=== PATIENT | male | born 1980 | race Caucasian/White ===

== ENCOUNTER 2021-10-27 14:24 | Emergency (ER) | payer MEDICAID, SELFPAY ==
[2021-10-27 14:26] VITALS: BP 146/86; PULSE 94; RESP 18; TEMP 36.1; O2SAT 98; BMI 26.6
[2021-10-27 14:56] LABS: Absolute Lymphocyte Count 2.18 X10^3/uL (0.83-4.51); Absolute Neutrophil Count 5.7 X10^3/uL (2.0-7.7); Basophil# 0.04 X10^3/uL; Basophil% 0.5 % (0-1); Eosinophil# 0.07 X10^3/uL; Eosinophils% 0.8 % (0-5); Hemoglobin 15.7 g/dL (13.0-16.5); Lymphocyte # 2.18 X10^3/ul (0.83-4.51); Lymphocyte % 25.9 % (19-41); Mean Corp Hgb Conc 36.5 g/dL (32-36); Mean Corpuscular Volume 87.8 fL (80-94); Mean Platelet Vol. 8.9 fl (6.2-12.0); Monocyte# 0.37 X10^3/uL; Monocyte% 4.4 % (0-10); NRBC Flagged by Analyzer 0 % (0-5); Neutrophil # 5.74 X10^3/uL (2.7-7.7); Neutrophil % 68.2 % (47-70); Platelet Count 283 K/mm3 (150-450); RBC Distribution Width CV 12.2 % (11.6-14.6); White Blood Count 8.4 K/mm3 (4.4-11.0)
[2021-10-27 15:08] LABS: Anion Gap 4 (5-15); BUN 13 mg/dL (7-18); Calcium,Total 9.3 mg/dL (8.5-10.1); Chloride 109 mmol/L (98-107); Creatinine, Serum 1.08 mg/dL (0.70-1.30); EST Glomerular Filtration Rate 80 mL/min (>60); Est Glom Filt Rate - Afr Amer 97 mL/min (>60); Estimated Creatinine Clearance 87.08 ml/min; Glucose 131 mg/dL (74-106); Potassium 3.8 mmol/L (3.5-5.1); Sodium Level 138 mmol/L (136-145)
--- NOTE | 2021-10-27 15:15 | EDS_ITS ---
HPI HPI - Psych History of Present Illness Chief Complaint: Mental Health Informant: patient Onset/Context/Timing Onset: Weeks Context: Gradual Onset Timing: Continuous Current Severity: Moderate Maximum Severity: Moderate Associated Symptoms Associated Symptoms - Psych: Positive for Change in sleeping, Decreased Concentration, Pressured Speech and Paranoia Narrative Narrative: 41-year-old male history of schizophrenia. States he has been off his medication for 2 weeks. Patient states that he is on a trial of Abilify. He missed a doctor's appointment. He has been off his medications. He said he has been self-medicating. Ago he used methamphetamines last night. Says been becoming more more paranoid over the last 2 weeks. He is assured himself that someone is in his house and is going to do him harm. He denies being suicidal homicidal. His last psychiatric hospitalization was 2 years ago. He denies any other drug use. Prior similar symptoms: Yes Recent Illness/Hospitalization: No PFSH PFSH Medical History (Updated 10/27/21 @ 16:11 by Angeline Carvalho) Paranoid schizophrenia Home Medications aripiprazole [Abilify] 15 mg PO DAILY 10/27/21 [History Last Taken Unknown] Allergy/AdvReac Type Severity Reaction Status Date / Time No Known Allergies Allergy Verified 10/27/21 14:26 Social History Smoking Status: Unknown if ever smoked ROS ROS ED ROS Narrative Denies recent illness. Review of Systems ROS Unobtainable: Denies due to encephalopathy Constitutional Constitutional ED: Denies fever(s) Eyes Eyes: Denies change in vision ENT ENT ED: Denies ear pain Cardiovascular Cardiovascular: Denies chest pain Respiratory/Chest Respiratory/Chest: Denies dyspnea Gastrointestinal Gastrointestinal: Denies abdominal pain Genitourinary Genitourinary ED: Denies dysuria Musculoskeletal Musculoskeletal: Denies myalgias Integumentary Denies rash Neurologic Neurologic: Denies headache(s) Psychiatric Psychiatric: Denies depression Endocrine Endocrinology: Denies polyuria Hematologic/Lymphatic Hematologic/Lymphatic: Denies easy bruising Allergic/Immunologic Allergic/Immunologic ED: Denies urticaria EXAM Physical Exam Narrative Exam Narrative: 41-year-old male no acute distress. Vital signs stable afebrile he does not look septic or toxic. He is anxious. HEENT exam unremarkable. Neck nontender. Lungs clear to auscultation bilaterally. Heart regular rhythm no murmur. Abdomen soft nontender. Moving all 4 extremities. Nontender. No edema. No track [place]. Neurologically is awake and alert with no focal motor deficits. Const Vital Signs: 10/27/21 14:26 10/27/21 20:08 10/27/21 20:24 Temperature 97.0 F L Temperature Source Temporal Pulse Rate 94 83 Respiratory Rate 18 18 17 Blood Pressure 146/86 H 137/77 H Blood Pressure Mean 106 97 Pulse Ox 98 98 Oxygen Delivery Method Room Air Room Air Room Air 10/27/21 22:00 10/27/21 22:36 Temperature 97.9 F Temperature Source Pulse Rate 74 Respiratory Rate 17 17 Blood Pressure 124/74 H Blood Pressure Mean 90 Pulse Ox 98 Oxygen Delivery Method Room Air Positive well nourished and well developed; Negative for obese, cachectic, contractures or unkempt General Appearance ED: well developed and NAD; Negative for unkempt, cachectic, contractures or pallor Nutritional Appearance: Negative for cachectic or obese HEENT Reports moist mucous membranes normocephalic and atraumatic; Negative for trauma or tenderness Eyes PERRL and EOMs intact bilaterally Neck no lymphadenopathy, supple and no JVD General: Negative for tenderness Resp normal respiratory effort and clear to auscultation bilaterally Auscultation: Negative for rales, rhonchi or wheezes Cardio S1 normal heart sound, S2 normal heart sound and no murmurs Rate: regular rate Rhythm: regular rhythm GI non-tender, non-distended and no masses Inspection: Negative for abdominal distention Auscultation: normoactive bowel sounds; Negative for hyperactive bowel sounds Palpation: soft; Negative for tender or guarding Back/Spine no CVA tenderness General Back: Negative for CVA tenderness Cervical Spine: Negative for cervical spine tenderness Thoracic Spine / Upper Back: Negative for thoracic spinal tenderness Lumbar Spine / Lower Back: Negative for lumbar spinal tenderness Extremity normal to inspection General Extremety ED: Negative for edema or tenderness General Extremity: Negative for edema Neuro oriented x3 Sensorium / Orientation: alert, oriented to person, oriented to place and oriented to time; Negative for confused, lethargic or stuporous Motor Exam: strength 5/5 throughout Psych mental status grossly normal, cooperative and speech normal Psych Narrative: Patient is paranoid. He is anxious. His pressured speech. Appearance: grossly normal; Negative for unkempt Skin General Skin Exam: Negative for jaundice or pallor Lesions: no lesions Rashes: no rashes MDM MDM MDM Narrative Medical decision making narrative: 41-year-old gentleman history of schizophrenia has been off his medications for 2 weeks. More more paranoid. Thinks he needs to be admitted. Can check labs will be obtained. He will be also be evaluated by social security benefits interviewer and a plan will be devised. Patient is medically cleared for psychiatric admission if deemed necessary. oven worker also spoke with the patient at length. She agrees and is working on placement. Patient is medically cleared. Lab Data Attestation: I reviewed the patient's lab results. Lab results narrative: CBC normal white count 8. H&H 15 and 43. The counts of 283. Painful 1. Electrolytes show a gap of 4 BUN and creatinine 13 and 1. Glucose 131. Covid test negative. Tox screen negative. Alcohol negative. Labs: Laboratory Results - last 24 hr 10/27/21 10/27/21 10/27/21 14:43 14:43 14:43 WBC 8.4 RBC 4.90 Hgb 15.7 Hct 43.0 MCV 87.8 MCH 32.0 MCHC 36.5 H RDW Std Deviation 39.0 RDW Coeff of Rebekah 12.2 Plt Count 283 MPV 8.9 Immature Gran % (Auto) 0.200 Neut % (Auto) 68.2 Lymph % (Auto) 25.9 [place] % (Auto) 4.4 Eos % (Auto) 0.8 Baso % (Auto) 0.5 Absolute Neuts (auto) 5.7 Absolute Lymphs (auto) 2.18 Nucleated RBC % 0 Sodium 138 Potassium 3.8 Chloride 109 H Carbon Dioxide 25.0 Anion Gap 4 L BUN 13 Creatinine 1.08 Estim Creat Clear Calc 87.08 Est GFR (MDRD) Af Amer 97 Est GFR (MDRD) Non-Af 80 BUN/Creatinine Ratio 12.0 Glucose 131 H Calcium 9.3 Total Creatine Kinase Urine Opiates Screen Urine Methadone Screen Ur Barbiturates Screen Ur Phencyclidine Scrn Ur Amphetamines Screen U Methamphetamin-MDMA U Benzodiazepines Scrn Urine Cocaine Screen U Cannabinoids Screen Ur Drug Screen Comment Ethyl Alcohol < 3.0 10/27/21 10/27/21 14:43 15:25 WBC RBC Hgb Hct MCV MCH MCHC RDW Std Deviation RDW Coeff of Rebekah Plt Count MPV Immature Gran % (Auto) Neut % (Auto) Lymph % (Auto) [place] % (Auto) Eos % (Auto) Baso % (Auto) Absolute Neuts (auto) Absolute Lymphs (auto) Nucleated RBC % Sodium Potassium Chloride Carbon Dioxide Anion Gap BUN Creatinine Estim Creat Clear Calc Est GFR (MDRD) Af Amer Est GFR (MDRD) Non-Af BUN/Creatinine Ratio Glucose Calcium Total Creatine Kinase 46 Urine Opiates Screen NEGATIVE Urine Methadone Screen NEGATIVE Ur Barbiturates Screen NEGATIVE Ur Phencyclidine Scrn NEGATIVE Ur Amphetamines Screen POSITIVE H U Methamphetamin-MDMA POSITIVE H U Benzodiazepines Scrn NEGATIVE Urine Cocaine Screen NEGATIVE U Cannabinoids Screen NEGATIVE Ur Drug Screen Comment Ethyl Alcohol Discharge Plan Triage Chief Complaint: Mental Health ED Provider: Patric Workman Dx/Rx/DC Orders Clinical Impression: Acute exacerbation of chronic paranoid schizophrenia, Medical non-compliance, History of methamphetamine abuse Prescriptions: No Action aripiprazole [Abilify] 15 mg tablet 15 mg PO DAILY RF: 0 Primary Care Provider: Care Physician,No Primary Referrals: NOT,DEFINED [NON-STAFF] - Disposition Disposition: Psychiatric Hospital or Unit Discharge Location: [facility] Discharge Date/Time: 10/27/21 23:13
[2021-10-27 15:18] LABS: Alcohol, Blood (Medical)-Serum < 3.0 mg/dL
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
[2021-10-27 16:36] LABS: Amphetamine Urine VISTA POSITIVE (<1000 ng/mL); Barbiturate Urine VISTA NEGATIVE (< 200 ng/mL); Benzodiazepine Urine VISTA NEGATIVE (< 200 ng/mL); Cocaine Urine VISTA NEGATIVE (< 300 ng/mL); Ecstacy Urine VISTA POSITIVE (< 500 ng/mL); Methadone Urine VISTA NEGATIVE (< 300 ng/mL); PCP Urine VISTA NEGATIVE (< 25 ng/mL); THC Urine VISTA NEGATIVE (< 50 ng/mL); Vista UDS pH Range 6
--- NOTE | 2021-10-27 17:05 | CM.ED ---
Social Work Telephone call to [facility], [facility]. Intake confirms to have open beds and to accept patient insurance. Clinical information faxed. This clinical social worker updated patient. This clinical social worker inquired as to who patient would like to be contacted in regards to case. Patient request for patient girlfriend, Kira Jordan to be updated. Telephone call to Kira, no answer. Voicemail left with return phone number provided if Kira has questions. No patient information provided in voicemail. Will continue to follow. Sigrid PAGE, AUNDREA
--- NOTE | 2021-10-27 17:35 | CM.ED ---
Social Work Telephone call from [facility]. Reports to have received referral and that referral is still pending clinical review, BUT if patient is accepted will not be able to accept until tomorrow morning. This social work program coordinator asked for Kianna Steven to continue to process referral but that another placement will be pursued as well. Telephone call to R[facility] Shine. Rani reports to have open beds and to be able to review clinicals. Rani also confirms to accept patient insurance. Clinical information faxed. Will continue to follow. Sigrid PAGE, AUNDREA
--- NOTE | 2021-10-27 17:40 | CM.ED ---
Social Work Voicemail received from patient significant other, Kira requesting return phone call. Telephone call to Kira, active support and listening support provided. Kira provided updated on case. Will continue to follow. Sigrid PAGE, AUNDREA
--- NOTE | 2021-10-27 18:42 | CM.ED ---
Social Work Telephone call to [facility]. Edgard confirms to have received referral but to now not have any open beds. Edgard reports to have not had as many discharges as expected. [facility] states maybe tomorrow morning. [facility] reports to [facility] and to accept patient insurance. Telephone call to [facility], [facility]. might have one open bed. Clinical information faxed. Telephone call to [facility], [facility]. There are open beds and [facility] does accept patient insurance. Clinical information faxed. Will continue to follow. Sigrid PAGE, AUNDREA
--- NOTE | 2021-10-27 19:47 | CM.ED ---
Social Work Telephone call from [facility], Intake. Patient declined due to not severe enough. Will continue to follow. Sigrid PAGE, AUNDREA
--- NOTE | 2021-10-27 19:59 | CM.ED ---
Social Work Telephone call from [facility], Intake. Intake reports that provider will want a CK level. Charge nurse updated on above information and will let doctor now. Will continue to follow. Sigrid PAGE, AUNDREA
[2021-10-27 20:08] VITALS: RESP 18
[2021-10-27 20:24] VITALS: BP 137/77; PULSE 83; RESP 17; O2SAT 98
[2021-10-27 20:28] LABS: CPK Total, Creatine Kinase 46 U/L (39-308)
[2021-10-27] MEDS: Ziprasidone IM 20 MG/ML VIAL IM (20:31)
--- NOTE | 2021-10-27 21:02 | CM.ED ---
Social Work Telephone call from [facility]. Patient has been accepted by Dr. Juarez to the [facility] Unit. Nurse to call report to [phone]. Medical team updated. Attempted to updated patient, patient sleeping. Telephone call to patient significant other, no answer. unable to leave voicemail. Telephone call to Jonathan Navarro and [facility]. Telephone call to crisis, [facility]. Updated on patient disposition due to patient being active with services. PLAN: Transition to [facility]. Sigrid PAGE, AUNDREA
[2021-10-27 22:00] VITALS: RESP 17
[2021-10-27 22:36] VITALS: BP 124/74; PULSE 74; RESP 17; TEMP 36.6; O2SAT 98
--- NOTE | 2021-10-28 19:02 | CM.ED ---
Kira, patient's significant other called and inquired if staff had update regarding patient going to [facility] and how he is doing. SW called Kira back and she said that patient's RN from [facility] had just called and updated her. Kira was appreciative of DYLON assistance. Rosa Isela OLIVO
== END 2021-10-27 23:13 ==
PROVIDERS: Emergency Provider Emergency Medicine; Visit Provider Emergency Medicine
DX: F20.0 Paranoid schizophrenia (principal); F15.10 Other stimulant abuse, uncomplicated; Z91.14 Patient's other noncompliance with medication regimen; Z91.19 Patient's noncompliance with other medical treatment and regimen; Z79.899 Other long term (current) drug therapy
CPT/HCPCS: 80048; 80307; 82077; 82550; 85025; 87426; 96372; 99285